=== PATIENT | male | born 1960 | race Caucasian/White ===

== ENCOUNTER 2017-04-12 06:32 | Day surgery (SDC) | payer BC ==
[~2017-04-12] VITALS: Ht 172.7 cm; Wt 82.0 kg
--- OUTSIDE RECORDS SUMMARY | 2017-04-12 06:36 | XMS REPORT | Continuity of Care Document ---
Author Author [facility] Organization [facility] Address Unknown Phone Unavailable Support Name Relationship Address Phone DAYO CONTRERAS Next Of Kin [address] [place] [address] Unavailable Insurance Providers Payer Name Policy Number Subscriber Name Relationship [facility] [id number] Ryan Contreras 20 Self Problems No Known Problems or Medical conditions. Social History History Response Recorded Date/Time Smoking Status Never smoker 06/24/13 4:02pm Allergies, Adverse Reactions, Alerts Allergen Type Severity Reaction Last Updated No Known Allergies 06/24/13 Medications No known medications Immunizations Name Given Type Hx Influenza Vaccination N H Hx Pneumococcal Vaccination N H Hx Tetanus, Diptheria, Pertussis UNKNOWN, REPORTS LONGER THAN 5 YEARS H Response Recorded Date/Time Status not known Unknown Results Test Date Result Interp. Ref. Range Alanine Aminotransferase (ALT/SGPT) June 24, 2013 4:18pm 611 U/L H 21-72 Albumin June 24, 2013 4:18pm 4.4 G/DL N 3.5-5.0 Albumin/Globulin Ratio June 24, 2013 4:18pm 1.5 RATIO N 1.1-2.2 Alkaline Phosphatase June 24, 2013 4:18pm 138 U/L H 38-126 Anion Gap June 24, 2013 4:18pm 14 MEQ/L N 5-15 Aspartate Amino Transf (AST/SGOT) June 24, 2013 4:18pm 232 U/L H 17-59 BUN/Creatinine Ratio June 24, 2013 4:18pm 11 RATIO N 6-26 Basophils # (Auto) June 24, 2013 4:18pm 0.1 T/MM3 N 0-0.2 Basophils (%) (Auto) June 24, 2013 4:18pm 0.8 % N 0-2 Blood Urea Nitrogen June 24, 2013 4:18pm 12.0 MG/DL N 9-20 Calcium Level June 24, 2013 4:18pm 9.7 MG/DL N 8.4-10.2 Calculated Osmolality June 24, 2013 4:18pm 277 MOSM/KG N 261-280 Carbon Dioxide Level June 24, 2013 4:18pm 25 MEQ/L N 22-30 Chloride Level June 24, 2013 4:18pm 105 MEQ/L N 98-107 Creatinine June 24, 2013 4:18pm 1.1 MG/DL N 0.8-1.5 Eosinophils # (Auto) June 24, 2013 4:18pm 0.1 T/MM3 N 0-0.5 Eosinophils (%) (Auto) June 24, 2013 4:18pm 2.3 % N 0-4 Globulin June 24, 2013 4:18pm 2.9 G/DL N 2.4-3.6 Glucose Level June 24, 2013 4:18pm 97 MG/DL N 75-110 Hematocrit June 24, 2013 4:18pm 45.9 % N 41-53 Hemoglobin June 24, 2013 4:18pm 16.1 GM/DL N 13.5-17.5 Lymphocytes # (Auto) June 24, 2013 4:18pm 2.9 T/MM3 N 1-4.8 Lymphocytes (%) (Auto) June 24, 2013 4:18pm 47.3 % H 23-45 Mean Corpuscular Hemoglobin June 24, 2013 4:18pm 31.0 UUG N 26-34 Mean Corpuscular Hemoglobin Concent June 24, 2013 4:18pm 35.1 GM/DL N 31- 37 Mean Corpuscular Volume June 24, 2013 4:18pm 88.4 UM3 N 80-100 Mean Platelet Volume June 24, 2013 4:18pm 10.0 UM3 N 9.4-12.4 Monocytes # (Auto) June 24, 2013 4:18pm 0.8 T/MM3 N 0-0.8 Monocytes (%) (Auto) June 24, 2013 4:18pm 12.9 % H 0-9.0 Neutrophils # (Auto) June 24, 2013 4:18pm 2.3 T/MM3 N 1.8-7.7 Neutrophils (%) (Auto) June 24, 2013 4:18pm 36.5 % N 33-66 Platelet Count June 24, 2013 4:18pm 239 T/MM3 N 130-400 Potassium Level June 24, 2013 4:18pm 3.4 MEQ/L L 3.6-5 RDW Standard Deviation June 24, 2013 4:18pm 46.0 FL N 36.9-50.2 Red Blood Count June 24, 2013 4:18pm 5.19 M/MM3 N 4.50-5.90 Sodium Level June 24, 2013 4:18pm 144 MEQ/L N 134-144 Total Bilirubin June 24, 2013 4:18pm 1.00 MG/DL N 0.20-1.30 Total Protein June 24, 2013 4:18pm 7.3 G/DL N 6.3-8.2 Troponin I June 24, 2013 4:18pm < 0.012 ng/ml 0-0.12 Urine Bilirubin June 24, 2013 5:30pm Negative - Urine Blood June 24, 2013 5:30pm Negative - Urine Collection Type June 24, 2013 5:30pm Voided-not cc-midstr - Urine Color June 24, 2013 5:30pm Yellow - Urine Glucose (UA) June 24, 2013 5:30pm Negative - Urine Ketones June 24, 2013 5:30pm Negative - Urine Leukocyte Esterase June 24, 2013 5:30pm Negative - Urine Nitrite June 24, 2013 5:30pm Negative - Urine Protein June 24, 2013 5:30pm Negative - Urine Specific [place] June 24, 2013 5:30pm 1.015 - Urine Turbidity June 24, 2013 5:30pm Clear - Urine Urobilinogen June 24, 2013 5:30pm Normal EU/DL - Urine pH June 24, 2013 5:30pm 8.0 - White Blood Count June 24, 2013 4:18pm 6.2 T/MM3 N 4.5-11.0 Urinalysis Comment June 24, 2013 5:30pm Microscopic not ind. - Glomerular Filtration Rate Calc June 24, 2013 4:18pm 71 - Immature Granulocyte # (Auto) June 24, 2013 4:18pm 0.01 T/MM3 N 0.00-0.03 Immature Granulocyte % (Auto) June 24, 2013 4:18pm 0.2 % N 0.0-0.5 Procedures Procedure Code Date THER/PROPH/DIAG INJ IV PUSH 11415 06/24/13 HYDRATE IV INFUSION ADD-ON 15334 06/24/13 RPR S/N/AX/GEN/TRNK2.6-7.5CM 06718 06/24/13 Encounters Encounter Location Date/Time Departed Emergency Room [facility] 06/24/13 3:41pm
--- OUTSIDE RECORDS SUMMARY | 2017-04-12 06:36 | XMS REPORT | Continuity of Care Document ---
Author Author [facility] Organization [facility] Address Unknown Phone Unavailable Support Name Relationship Address Phone SOFY GALEANA APRN Caregiver [address] [place] [address] Unavailable JOEY BECERRA MD Caregiver [address] [place] [address] [place] [address] Unavailable DAYO CONTRERAS Next Of Kin [address] [place] [address] [phone] Insurance Providers Guarantor Ryan Contreras Address [address] [place] [address] h Email DENIED Payer [facility] Policy Number [id number] Subscriber's Name Ryan Contreras Relationship 20 Self Group Number [id number] Chief Complaint and Reason for Visit Chief Complaint Cough,Fever,Flu,URI Reason for Visit Acute bronchitis Problems Past Problems Medical Problem Onset Date Acute bronchitis Unknown Medications Current Home Medications Medication Dose Units Route Directions Days Qty Instructions Start Date Azithromycin 250 Mg Tablet 1 Tab Oral Daily 6 Tablet TAKE TWO TABLETS ON DAY ONE, THEN ONE TABLET DAILY UNTIL ALL TAKEN. Supervising physician Dr. Weston Hyde [employer] [facility] [address] [facility] [phone] 01/19/17 Prednisone 20 Mg Tablet 40 Mg Oral Daily 5 Days [address] Weston Hyde [employer] [facility] [address] [facility] [phone] 01/19/17 Social History No social history. Hospital Discharge Instructions No hospital discharge instructions. Plan of Care Discharge Date 01/19/17 3:12pm Disposition 01 DISCHARGED HOME, SELF-CARE Condition at Discharge Stable Instructions/Education Provided Acute Bronchitis (ED) Prescriptions See Medication Section Referrals JOEY BECERRA MD Address: [address] [place] [address] [place] [phone] Functional Status No functional status results. Allergies, Adverse Reactions, Alerts No known allergies. Immunizations Query Response on File Recorded Date/Time Hx Influenza Vaccination No 06/24/13 4:06pm Hx Pneumococcal Vaccination No 06/24/13 4:06pm Hx Tetanus, Diptheria, Pertussis UNKNOWN, REPORTS LONGER THAN 5 YEARS 4:06pm Hx Influenza Vaccination No 06/24/13 4:06pm Hx Tetanus, Diptheria, Pertussis UNKNOWN, REPORTS LONGER THAN 5 YEARS 4:06pm Vital Signs Acute Vital Signs Vital Response Date/Time Temperature (Fahrenheit) 98.0 deg F (96.8 - 99.1) 01/19/2017 2:52pm Temperature (Calculated Celsius) 36.82948 degrees C (36.0 - 37.3) 01/19/2017 2:52pm Pulse Rate (adult) 68 bpm (60 - 100) 01/19/2017 2:52pm O2 Sat by Pulse Oximetry 97 % (90 - 100) 01/19/2017 2:52pm Blood Pressure 102/61 mm Hg 01/19/2017 2:52pm Height (Feet) 5 feet 01/19/2017 2:52pm Height (Inches) 8.00 inches 01/19/2017 2:52pm Weight (Kilograms) 86.300 kg 01/19/2017 2:52pm Body Mass Index (BMI) 28.0 01/19/2017 2:52pm Results No known relevant diagnostic tests, laboratory data and/or discharge summary. Procedures No known history of procedures. Encounters Encounter Location Arrival/Admit Date Discharge/Depart Date Attending Provider Departed Emergency Room [facility] 01/19/17 2:44pm 01/19/17 3: 12pm SOFY GALEANA APRN Recent Diagnosis
--- OUTSIDE RECORDS SUMMARY | 2017-04-12 06:36 | XMS REPORT | Continuity of Care Document ---
Author Author [facility] Organization [facility] Address Unknown Phone Unavailable Allergies Medications Problems Procedures Results Encounters ACCT No. Visit Date/Time Discharge Status Pt. Type Provider Facility Loc./Unit Complaint [id number] 02/05/2014 15:18:00 02/05/2014 23 :59:59 C[facility] Outpatient [id number] 01/20/2014 14:46:00 01/20/2014 23 :59:59 CLS Outpatient
[2017-04-12 06:57] VITALS: BP 114/75; PULSE 55; RESP 16; TEMP 97.5; O2SAT 98
[2017-04-12 06:58] VITALS: Ht 172.7 cm; Wt 82.0 kg
[2017-04-12] MEDS ORDERED: LR 1,000 ML IV SCH (07:00)
[2017-04-12] MEDS ORDERED: LIDOCAINE 1% (10mg/ml) 2ml SDV INJ ONE (07:00)
--- NOTE | 2017-04-12 08:19 | ANESPREOP ---
Anesthesia Record Date and Time DATE: 04/12/17 TIME: 08:17 Pre-Op Diagnosis Family hx colon cancer Proposed Surgical Procedure COLONOSCOPY NPO since: [place] Allergies: Coded Allergies: No Known Allergies (Unverified , 04/12/17) Ht/Wt/BMI Height: 5 ' 8.00 " Weight: 82.000 kg BMI: 27.5 kg/m2 Vital Signs Date Time Temp Pulse Resp B/P Pulse Ox O2 Delivery O2 Flow Rate FiO2 04/12/17 06:57 97.5 55 16 114/75 98 Room Air Medications Inpatient Medications Current Medications Medications (Trade) Dose Ordered Sig/Siddharth Start Time Stop Time Status Last Admin Dose Admin Lactated Ringer's (Lactated Ringers) 1,000 ml @ 30 mls/hr Q24H 04/12/17 07:00 04/12/17 07:09 30 MLS/HR No Active Prescriptions or Reported Meds Currently on Beta Marilia: No Medical/Surgical History Anesthesia PMH: Reports: Hepatitis (HEP C - HAS BEEN TREATED), Reflux (IN PAST) , Denies: *Diabetes, Anesthesia Reactions (NO AIRWAY ISSUES), Arthritis, Cancer , Clotting Problems, Glaucoma, Malignant Hyperthermia, Sleep Apnea, Thyroid Disease Smoking Status: Never smoker Use Chewing Tobacco?: Yes Chewing Tobacco Last Used: April 11, 2017 Second Hand Exposure: No Substance Use Type: does not use Alcohol Intake: a few times a month Past Surgical History Orthopedic Surgeries: Abdominal Surgeries: Genitourinary Surgeries: Cardiac Surgeries: Endocrine Surgeries: Reproductive Surgeries: Neurological Surgeries: Ear Surgeries: Nose Surgeries: Throat Surgeries: Other Surgeries: Anesthesia Adverse Reactions: FOUND none Family Hx of Anesthesia Advers: none Hx of Motion Sickness: No Pertinent Findings EKG Rhythm: Sinus Bradycardia Physical Exam Respiratory: Bilat breath sounds equal, Lungs clear Cardiovascular: FOUND Regular rate, rhythm, FOUND No murmur Airway Assessment Mallampati Score: I TMD: 3 Fingerbreadths Neck Extension: Good Overall Assessment: No Airway Concerns ASA: 2 Plan Anesthesia Plan: TIVA Discussion Discussed risks/options/alternatives of anesthesia and questions answered. Patient consents. Nursing pain assessment noted. Present: Spouse Attestation Statement Prior to the delivery of any anesthetic medication, I examined the patient, developed the plan, obtained the patient's consent and discussed the risk and benefits of the procedure with the patient/guardian. GILA MOTT CRNA April 12, 2017 08:19
[2017-04-12] MEDS ORDERED: PROPOFOL 500mg 50 ML IV ONE (08:24)
[2017-04-12 08:55] VITALS: BP 105/58; PULSE 62; RESP 16; TEMP 98.3; O2SAT 96
--- NOTE | 2017-04-12 09:03 | ANESPO ---
Post-Op Note Date 04/12/17 Time: 09:02 Status Pt Participated in Evaluation: Pt participated in person Vital Signs Date Time Temp Pulse Resp B/P Pulse Ox O2 Delivery O2 Flow Rate FiO2 04/12/17 06:57 97.5 55 16 114/75 98 Room Air Respiratory Function: Airway patent, Regular respirations Cardiovascular Function: Regular pulse Telemetry Pattern: SR Mental Status: Alert/oriented Pain Level Intensity: 0 Hydration: IV infusing Complications during Recovery None apparent Follow-Up Instructions Instructions Per Surgeon GILA MOTT CRNA April 12, 2017 09:02
[2017-04-12 09:10] VITALS: BP 104/58; PULSE 57; RESP 18; O2SAT 96
[2017-04-12 09:21] VITALS: BP 98/72; PULSE 60; RESP 20; O2SAT 95
--- NOTE | 2017-04-12 12:15 | OPNOTEF ---
DATE OF PROCEDURE 04/12/2017 SURGEON Dandy Osorio MD PREOPERATIVE DIAGNOSIS Family history for colon cancer within first-degree relative. POSTOPERATIVE DIAGNOSIS Family history for colon cancer within first-degree relative, rectal polyp. PROCEDURE Colonoscopy with polypectomy via cold biopsy technique. ANESTHESIA TIVA BRIEF HISTORY/INDICATIONS Mr. Gardner is a 56-year-old gentleman who has a family history for colon cancer within his mother. It has been more than 5 years since his last endoscopic evaluation. He presents today to undergo a colonoscopy. For completeness please refer to notes included in the patient's chart. FINDINGS Upon colonoscopy there was no evidence for angiodysplastic lesions, diverticula or dinora malignancies. The patient was found to have a single polyp in the rectal vault that was fairly diminutive in nature, on the order of about 5 mm in diameter. This polyp was removed in its entirety via cold biopsy technique. DESCRIPTION OF PROCEDURE After informed consent was obtained, the patient was brought to the endoscopy suite and placed on the table in left lateral decubitus position. The patient subsequently underwent total intravenous anesthesia by the nurse deputy register of deeds per my request. Formal time-out was then completed. Next, digital rectal examination was performed. Normal sphincter tone. No rectal masses were appreciated. An Olympus colonoscope was inserted in the anus and advanced with the lumen of the colon under direct visualization at all times till the cecum was ascertained. Triangulation of the taenia coli and ileocecal valve were identified. Scope was slowly withdrawn, again maintaining visualization of the lumen at all times. As stated above, the entire colon was without evidence for angiodysplastic lesions, diverticula or dinora allergies. Once the scope was withdrawn back to the rectal vault, one could see a polyp that was on the order of about 5-6 mm in diameter. This polyp was grasped and removed in its entirety via cold biopsy technique. J-maneuver was then performed. No worrisome perianal pathology was noted. The scope was allowed to straighten and withdrawn through the anal verge. The patient tolerated the procedure without difficulty and was sent back to the preop area in stable condition. Will await the biopsy results from today's single polypectomy and proceed accordingly with further recommendations thereafter. LIVIA
== END 2017-04-12 09:38 | disposition home or self-care (01) ==
LOC: NSC 06:32
PROVIDERS: ATTEND Surgery
DX: Z12.11 Encounter for screening for malignant neoplasm of colon (principal); K62.1 Rectal polyp; Z80.0 Family history of malignant neoplasm of digestive organs; Z86.19 Personal history of other infectious and parasitic diseases; F17.200 Nicotine dependence, unspecified, uncomplicated
CPT/HCPCS: 45380; J2704; J7120